=== PATIENT | male | born 1985 | race Caucasian/White ===

== ENCOUNTER 2023-12-29 17:36 | Observation (INO) | payer BC ==
[2023-12-29 18:24] LABS: Specific Gravity 1.024 (1.005-1.030); Urine Bilirubin NEGATIVE (Negative); Urine Blood Negative (Negative); Urine Clarity Clear (Clear); Urine Color Light-Yellow (Yellow); Urine Glucose NEGATIVE (Negative); Urine Ketones NEGATIVE (Negative); Urine Microscopic Reflex YN NO UMIC; Urine Nitrite NEGATIVE (Negative); Urine Protein NEGATIVE (Negative); Urine Urobilinogen Normal (Normal); Urine pH 6.5 (5.0-7.0)
[2023-12-29 18:26] LABS: Absolute Eosinophils 0.1 K/uL (0-0.5); Absolute Lymphocytes (CBC) 2.4 K/uL (0.7-4.9); Absolute Monocytes 0.7 K/uL (0.1-1.3); Absolute Neutrophil 6.7 K/uL (1.8-8.0); Basophils % 0.5 % (0-1.3); Eosinophils % 1.4 % (0-4.4); Hematocrit 42.1 % (39.6-49.0); Hemoglobin 14.8 g/dL (13.6-17.9); Lymphocytes % 24.3 % (15.3-44.8); MCH 30.8 pg (27.0-35.0); MCHC 35.2 g/dL (32.0-36.0); MCV 87.3 fL (80-100); MPV 9.8 fL (7.6-11.3); Neutrophils % 66.8 % (41.7-73.7); Nucleated Red Blood Cells % 0.3 % (0-0); Platelets 164 thou/uL (152-406); RBC Red Blood Cell Count 4.83 M/uL (4.33-5.43); Red Cell Distribution Width 12.9 % (12.1-15.2)
[2023-12-29 18:48] LABS: Albumin 3.6 g/dL (3.4-5.0); Albumin/Globulin Ratio 1.1 (1.1-1.8); Anion Gap 7.9 mEq/L (5.0-15.0); Globulin 3.3 g/dL (2.3-3.5); Protein, Total 6.9 g/dL (6.4-8.2)
[2023-12-29 18:49] LABS: Potassium 3.9 mEq/L (3.5-5.1)
--- NOTE | 2023-12-29 19:21 | RAD REPORT ---
EXAMINATION: CT ABDOMEN AND PELVIS WITH CONTRAST CLINICAL INDICATION: ABD PAIN TECHNIQUE: CT abdomen and pelvis was performed, after the administration of IV contrast, as per [facility] protocol. Axial, sagittal and coronal reconstructions were obtained. One or more of the following dose reduction techniques were used: Automated exposure control, adjustment of the mA and k V according to patient size, and iterative reconstruction. Unless otherwise specified, incidental findings do not require dedicated imaging follow-up. COMPARISON: None FINDINGS: LOWER CHEST: The visualized lung bases are clear. LIVER: Normal in size and contour. No focal lesion. Grossly unremarkable gallbladder. SPLEEN: Normal size. No focal lesion. PANCREAS: No mass, ductal dilation, or petrona-pancreatic fluid. ADRENALS: Normal; no mass. KIDNEYS: Normal size and contour. No hydronephrosis. GASTROINTESTINAL TRACT: No evidence of free air, significant intra-abdominal free fluid, bowel obstru ction or abscess. APPENDIX: Appendix is dilated and moderately inflamed measuring up to 2 cm compatible with acute appe ndicitis. LYMPH NODES: No lymphadenopathy. MUSCULOSKELETAL: No acute or suspicious osseous abnormality. ADDITIONAL FINDINGS: None. IMPRESSION: Acute appendicitis.
--- NOTE | 2023-12-29 19:41 | EDPHYS ---
Physician Documentation [facility] Name: Rc Fairbanks Jr Age: 38 yrs Sex: Male : 1985 Arrival Date: 12/29/2023 Time: 17:36 Bed 20 Private MD: ED Physician Patrice Larry HPI: 12/28 17:43 This 38 yrs old Male presents to ER via Ambulatory with complaints of Abdominal Pain. sb4 17:43 The patient presents with abdominal pain right lower quadrant. Onset: The sb4 symptoms/episode began/occurred at an unknown time, and became worse today. The symptoms do not radiate. Associated signs and symptoms: none. Modifying factors: The symptoms are alleviated by remaining still, the symptoms are aggravated by coughing, breathing deeply, movement, pressure. Severity of pain: in the emergency department the pain is a 4 / 10. The patient has not experienced similar symptoms in the past. The patient has not recently seen a physician. Historical: - Allergies: 17:43 No Known Allergies; aa5 - Home Meds: 17:43 Omeprazole Oral [Active]; aa5 - PMHx: 17:43 None; aa5 - PSHx: 17:43 None; aa5 - Immunization history:: Adult Immunizations unknown. - Infectious Disease History:: Denies. - Social history:: Smoking status: Patient denies any tobacco usage or history of. ROS: 17:43 Constitutional: Negative for fever, chills, and weight loss, sb4 17:43 Abdomen/GI: Positive for abdominal pain, 17:43 All other systems are negative, Exam: 17:43 Constitutional: This is a well developed, well nourished patient who is awake, alert, sb4 and in no acute distress. Head/Face: Normocephalic, atraumatic. Eyes: Extra-ocular motions intact. Periorbital areas with no swelling, redness, or edema. ENT: Mucous membranes moist. Cardiovascular: Regular rate and rhythm with a normal S1 and S2. Respiratory: Lungs have equal breath sounds bilaterally, clear to auscultation and percussion. No rales, rhonchi or wheezes noted. No increased work of breathing, no retractions or nasal flaring. Skin: Warm, dry with normal turgor. Normal color with no rashes, no lesions, and no evidence of cellulitis. 17:43 Abdomen/GI: Inspection: abdomen appears normal, Bowel sounds: normal, Palpation: soft, mild abdominal tenderness, in the right lower quadrant, rebound tenderness, is not appreciated, voluntary guarding, is not appreciated, Vital Signs: 17:40 BP 169 / 96; Pulse 81; Resp 16 S; Temp 98(TE); Pulse Ox 100% on R/A; Weight 129.27 kg aa5 (R); Height 6 ft. 3 in. (R); Pain 4/10; 19:45 BP 141 / 87; Pulse 82; Resp 17; Temp 98(O); Pulse Ox 100% on R/A; Pain 4/10; rg5 17:40 Body Mass Index 35.62 (129.27 kg, 190.5 cm) aa5 17:40 Pain Scale: Adult aa5 19:45 Pain Scale: Adult rg5 MDM: 17:40 Patient medically screened. sb4 19:39 Data reviewed: vital signs, nurses notes, lab test result(s), radiologic studies, and sb4 as a result, I will admit patient. Consideration of Admission/Observation Patient was admitted/placed on observation. Management of patient was discussed with the following: Hospitalist: Dr. Goldstein. [facility]: Dr. Quach, will operate in the morning. Historians other than the Patient: Spouse/Significant Other: . Counseling: I had a detailed discussion with the patient and/or guardian regarding the historical points, exam findings, and any diagnostic results supporting the discharge/admit diagnosis, the presence of at least one elevated blood pressure reading (>120/80) during this emergency department visit, lab results, radiology results, the need for further work-up and treatment in the hospital. 12/28 17:43 Order name: CBC with Diff; Complete Time: 18:27 sb4 12/28 17:43 Order name: CMP; Complete Time: 18:49 sb4 12/28 17:43 Order name: Lipase; Complete Time: 18:49 sb4 12/28 17:43 Order name: Urinalysis w/ reflexes; Complete Time: 18:25 sb4 12/28 20:05 Order name: Urinalysis w/ reflexes EDMS 12/28 17:43 Order name: CT Abd/Pelvis - IV Contrast Only; Complete Time: 19:22 sb4 12/28 17:43 Order name: IV Saline Lock; Complete Time: 18:22 sb4 12/28 17:43 Order name: Labs collected and sent; Complete Time: 18:22 sb4 Administered Medications: 20:00 Drug: Piperacillin-Tazobactam IVPB 3.375 grams IVPB once over 60 mins; (mix in NS 100 rg5 mL) Route: IVPB; Infused Over: 60 mins; Site: right antecubital; 20:56 Follow up: IV Status: Completed infusion; IV Intake: 100ml rg5 Disposition Summary: 12/29/23 19:40 Hospitalization Ordered Notes: Hospitalization Status: Inpatient Admission sb4 Provider: Prince clemencia Goldstein4 Location: Telemetry/MedSurg (Inpatient) sb4 Condition: Stable sb4 Problem: new sb4 Symptoms: are unchanged sb4 Bed/Room Type: Standard sb4 Room Assignment: 208(12/29/23 20:07) vk Diagnosis - Acute appendicitis with localized peritonitis sb4 Forms: - Medication Reconciliation Form sb4 - SBAR form sb4 - Leadership Thank You Letter sb4 Addendum: 12/31/2023 09:23 I was immediately available for consultation during this patient's visit. I did not e c2 personally see the patient or discuss the patient with the EZEQUIEL. . Signatures: Dispatcher [employer] Prudence Gutierrez RN RN aa5 Nai Gr, PA-C PA-C sb4 Patrice Larry MD MD ec2 Sierra Hernandez Rommel, RN RN rg5 Corrections: (The following items were deleted from the chart) 12/28 17:44 17:44 CBC+H.LAB.BRZ ordered. EDMS EDMS 17:44 17:44 COMPREHENSIVE METABOLIC PANEL+C.LAB.BRZ ordered. EDMS EDMS 17:44 17:44 LIPASE+C.LAB.BRZ ordered. EDMS EDMS 17:44 17:44 Urinalysis+U.LAB.BRZ ordered. EDMS EDMS 20:07 19:40 sb4 vk
--- NOTE | 2023-12-29 19:41 | ER ---
Nurse's Notes [facility] Name: Rc Fairbanks Jr Age: 38 yrs Sex: Male : 1985 Arrival Date: 12/29/2023 Time: 17:36 Bed 20 Private MD: Diagnosis: Acute appendicitis with localized peritonitis Presentation: 12/28 17:40 Chief complaint: Patient states: RUQ and RLQ pain that began 2-3 days ago. Denies aa5 nausea/vomiting. Coronavirus screen: At this time, the client does not indicate any symptoms associated with coronavirus-19. Ebola Screen: Patient denies travel to an Ebola-affected area in the 21 days before illness onset. Initial Sepsis Screen: Does the patient meet any 2 criteria? No. Patient's initial sepsis screen is negative. Does the patient have a suspected source of infection? No. Patient's initial sepsis screen is negative. Risk Assessment: Do you want to hurt yourself or someone else? Patient reports no desire to harm self or others. Onset of symptoms was December 2023. 17:40 Method Of Arrival: Ambulatory aa5 17:40 Acuity: CAPRICE 3 aa5 Historical: - Allergies: 17:43 No Known Allergies; aa5 - Home Meds: 17:43 Omeprazole Oral [Active]; aa5 - PMHx: 17:43 None; aa5 - PSHx: 17:43 None; aa5 - Immunization history:: Adult Immunizations unknown. - Infectious Disease History:: Denies. - Social history:: Smoking status: Patient denies any tobacco usage or history of. Screenin:23 [facility] ED Fall Risk Assessment (Adult) History of falling in the last 3 months, ph including since admission No falls in past 3 months (0 pts) Confusion or Disorientation Yes (5 pts) Intoxicated or Sedated Yes (3 pts) Impaired Gait No (0 pts) Mobility Assist Device Used No (0 pt) Altered Elimination No (0 pt) Score/Fall Risk Level 0 - 2 = Low Risk Oriented to surroundings, Maintained a safe environment, Provided non-skid footwear. Abuse screen: Denies threats or abuse. Denies injuries from another. Nutritional screening: No deficits noted. Tuberculosis screening: No symptoms or risk factors identified. Assessment: 18:22 General: Appears in no apparent distress. comfortable, well groomed, Behavior is calm, ph cooperative, appropriate for age. Pain: Complains of pain in right upper quadrant and right lower quadrant. Neuro: Level of Consciousness is awake, alert, obeys commands, Oriented to person, place, time, situation. Cardiovascular: Capillary refill < 3 seconds in bilateral fingers Patient's skin is warm and dry. Respiratory: Airway is patent Respiratory effort is even, unlabored, Respiratory pattern is regular, symmetrical. GI: Abdomen is non-distended, Bowel sounds present X 4 quads. Abd is soft X 4 quads Reports lower abdominal pain, upper abdominal pain, Patient currently denies diarrhea, nausea, vomiting. Derm: Skin is intact, is healthy with good turgor, Skin is pink, warm \T\ dry. Musculoskeletal: Circulation, motion, and sensation intact. Range of motion: intact in all extremities. 19:05 General: Appears in no apparent distress. comfortable, Behavior is calm, cooperative, rg5 appropriate for age. 19:05 Pain: Complains of pain in abdomen Pain currently is 4 out of 10 on a pain scale. rg5 Quality of pain is described as aching. Neuro: Level of Consciousness is awake, alert, obeys commands, Oriented to person, place, time, situation. Cardiovascular: Capillary refill < 3 seconds Patient's skin is warm and dry. Respiratory: Airway is patent Respiratory effort is even, unlabored, Respiratory pattern is regular, symmetrical. GI: Abdomen is non-distended, Bowel sounds present X 4 quads. Abd is soft Reports lower abdominal pain, upper abdominal pain. Derm: Skin is intact, Skin is normal. Derm: Skin is intact, Skin is normal. Musculoskeletal: Circulation, motion, and sensation intact. Range of motion: intact in all extremities. 20:45 Reassessment: No changes from previously documented assessment. Patient and/or family rg5 updated on plan of care and expected duration. Pain level reassessed. Patient is alert, oriented x 3, equal unlabored respirations, skin warm/dry/pink. Vital Signs: 17:40 BP 169 / 96; Pulse 81; Resp 16 S; Temp 98(TE); Pulse Ox 100% on R/A; Weight 129.27 kg aa5 (R); Height 6 ft. 3 in. (R); Pain 4/10; 19:45 BP 141 / 87; Pulse 82; Resp 17; Temp 98(O); Pulse Ox 100% on R/A; Pain 4/10; rg5 17:40 Body Mass Index 35.62 (129.27 kg, 190.5 cm) aa5 17:40 Pain Scale: Adult aa5 19:45 Pain Scale: Adult rg5 ED Course: 17:36 Patient arrived in ED. ra3 17:37 Nai Gr [facility] sb4 17:37 Patrice Larry MD is Attending Physician. sb4 17:40 Triage completed. aa5 17:40 Arm band placed on. aa5 17:48 Rosie Navarro, HALEY is Primary Nurse. ph 18:22 CBC with Diff Sent. ph 18:22 CMP Sent. ph 18:22 Lipase Sent. ph 18:22 Urinalysis w/ reflexes Sent. ph 18:23 Patient has correct armband on for positive identification. Bed in low position. Call ph light in reach. Pulse ox on. NIBP on. Door closed. Noise minimized. Warm blanket given. 18:27 No provider procedures requiring assistance completed. Initial lab(s) drawn, by ks, ph sent to lab. Urine collected: clean catch specimen. Inserted saline lock: 20 gauge in right antecubital area, using aseptic technique. Blood collected. Flushed with 10 mL NS. 19:13 CT Abd/Pelvis - IV Contrast Only In Process Unspecified. EDMS 19:40 Prince Goldstein MD is Hospitalizing Provider. sb4 20:28 Urinalysis w/ reflexes Sent. rg5 21:01 Patient admitted, IV remains in place. rg5 21:02 Provided Education on: need for admit. rg5 Administered Medications: 20:00 Drug: Piperacillin-Tazobactam IVPB 3.375 grams IVPB once over 60 mins; (mix in NS 100 rg5 mL) Route: IVPB; Infused Over: 60 mins; Site: right antecubital; 20:56 Follow up: IV Status: Completed infusion; IV Intake: 100ml rg5 Medication: 18:23 VIS not applicable for this client. ph Intake: 20:56 IV: 100ml; Total: 100ml. rg5 Outcome: 19:40 Decision to Hospitalize by Provider. sb4 21:14 Patient left the ED. rg5 Signatures: Dispatcher [employer] EDMS Prudence Loyola RN RN aa5 Rosie Navarro RN RN ph Simón, DEYA Trimble PALinden khanna4 Alexa Ramos ra3 Milton Tena, RN RN rg5 Corrections: (The following items were deleted from the chart) 17:42 17:40 BP 169 / 96; Pulse 81bpm; Resp 16bpm; Spontaneous; Pulse Ox 100% RA; Temp 98F aa5 Temporal; aa5 17:43 17:40 BP 169 / 96; Pulse 81bpm; Resp 16bpm; Spontaneous; Pulse Ox 100% RA; Temp 98F aa5 Temporal; Pain 10, Adult; aa5
[2023-12-29] MEDS ORDERED: ONDANSETRON 4 MG/2 ML VIAL IV PRN (20:01)
[2023-12-29] MEDS ORDERED: SODIUM CHLORIDE 0.9% 10ML INJ IV PRN (20:04)
[2023-12-29] MEDS: PIPER TAZO 3.375 GM in NA CHLORIDE 0.9% 100 ML IV SCH (20:04)
--- NOTE | 2023-12-29 20:08 | P.HP ---
Certification for Inpatient Patient admitted to: Observation With expected LOS: <2 Midnights Practitioner: I am a practitioner with admitting privileges, knowledge of patient current condition, hospital course, and medical plan of care. Services: Services provided to patient in accordance with Admission requirements found in Title 42 Section 412.3 of the Code of Federal Regulations Patient History Date of Service: 12/29/23 Reason for admission: Acute appendicitis History of Present Illness: Patient is a 38-year-old male with a past medical history of GERD. He presented to the ER accompanied by his partner complaining of acutely worsening right lower quadrant pain. The onset of symptoms was on the day of admission. Initially thought this was a hernia as he is engaged recently in strenuous exercise including weightlifting. CT abdomen and pelvis in the ER showed acute appendicitis. Patient has a normal WBC, he is not septic. During my evaluation in the ER, patient was alert and awake. Physical Examination - Physical Exam General: In no apparent distress, Obese HEENT: Atraumatic, Normocephalic Respiratory: Clear to auscultation bilaterally, Normal air movement Cardiovascular: No edema, Normal pulses, Regular rate/rhythm, Normal S1 S2 Neurological: Normal speech - Studies Laboratory Data (last 24 hrs) 12/29/23 12/29/23 18:10 18:10 WBC 10.00 Hgb 14.8 Hct 42.1 Plt Count 164 Sodium 141 Potassium 3.9 BUN 16 Creatinine 1.22 Glucose 95 Total Bilirubin 1.0 AST 17 ALT 33 Alkaline Phosphatase 59 Lipase 54 Assessment and Plan - Problems (Diagnosis) (1) Acute appendicitis Current Visit: Yes Status: Acute (2) GERD (gastroesophageal reflux disease) Current Visit: Yes Status: Acute (3) Obesity Current Visit: Yes Status: Acute - Plan Assessment This is a generally healthy 38-year-old male who is presenting to the ER with acutely worsening right lower quadrant abdominal pain. He was found to have appendicitis on CAT scan. Patient's review of system is negative for nausea, vomiting or diarrhea. He also denies fever. He does not meet criteria for sepsis. Acute appendicitis GERD Obesity Plan: Admit under observation Will start patient on IV fluid and empiric antibiotic coverage perioperatively Pain control, IV PPI and antiemetics Consult placed to general surgery for appendectomy Patient is full code He can be discharged tomorrow if cleared by general surgery - Advance Directives Does patient have a Living Will: No Does patient have a Durable POA for Healthcare: No
[2023-12-29] MEDS ORDERED: NA CHLORIDE 0.9% 100 ML ONE (20:14)
[2023-12-29] MEDS ORDERED: PIPERACIL/TAZO 3.375 GM VIAL IV ONE (20:14)
[2023-12-29 22:34] VITALS: BMI 35.6
[2023-12-29] MEDS: PANTOPRAZOLE 40 MG INJ IVP SCH (22:47)
[2023-12-29] MEDS: D5 0.45 NS 1,000 ML IV SCH (22:47)
[2023-12-29] MEDS: ACETAMINOPHEN 500 MG TAB PO PRN (22:48)
[2023-12-30] MEDS ORDERED: PANTOPRAZOLE 40MG TABLET PO SCH (06:30)
--- NOTE | 2023-12-30 08:46 | P.DS ---
Admission Date: 12/29/23 Discharge Date: 12/30/23 Disposition: ROUTINE DISCHARGE Discharge Condition: GOOD Reason for Admission: Acute appendicitis Consultations: Dr. Quach Procedures: Laparoscopic appendectomy Brief History of Present Illness: Patient is a 38-year-old male with a past medical history of GERD. He presented to the ER accompanied by his partner complaining of acutely worsening right lower quadrant pain. The onset of symptoms was on the day of admission. Initially thought this was a hernia as he is engaged recently in strenuous exercise including weightlifting. CT abdomen and pelvis in the ER showed acute appendicitis. Patient has a normal WBC, he is not septic. During my evaluation in the ER, patient was alert and awake. Hospital Course: Mr. Fairbanks underwent a laparoscopic appendectomy today. He will be discharged with Augmentin 500 mg p.o. twice daily x 5 days and [place] 5/325 p.o. every 4-6 hours as needed pain #15. He should avoid lifting anything more than 10 pounds for 1 week. He should follow-up with Dr. Quach in 2 weeks. Vital Signs/Physical Exam: Temp Pulse Resp BP Pulse Ox 98.3 F 60 18 111/59 L 95 12/30/23 04:00 12/30/23 04:00 12/30/23 04:00 12/30/23 04:00 12/30/23 04:00 General: Alert, In no apparent distress, Oriented x3 HEENT: Atraumatic, Normocephalic Neck: Supple Respiratory: Normal air movement Cardiovascular: Normal pulses, Regular rate/rhythm Capillary refill: <2 Seconds Gastrointestinal: Hypoactive, Other ("Sore", positive p.o., positive voiding) Musculoskeletal: No clubbing, No swelling Integumentary: No rashes Neurological: Normal speech, Normal tone, Normal affect Lymphatics: No axilla or inguinal lymphadenopathy External genitalia: Deferred Rectal: Deferred Laboratory Data at Discharge: WBC 10.00 thou/uL (4.3-10.9) 12/29/23 18:10 Hgb 14.8 g/dL (13.6-17.9) 12/29/23 18:10 Hct 42.1 % (39.6-49.0) 12/29/23 18:10 Plt Count 164 thou/uL (152-406) 12/29/23 18:10 Sodium 141 mEq/L (136-145) 12/29/23 18:10 Potassium 3.9 mEq/L (3.5-5.1) 12/29/23 18:10 BUN 16 mg/dL (7-18) 12/29/23 18:10 Creatinine 1.22 mg/dL (0.70-1.30) 12/29/23 18:10 Glucose 95 mg/dL (74-106) 12/29/23 18:10 Total Bilirubin 1.0 mg/dL (0.2-1.0) 12/29/23 18:10 AST 17 U/L (15-37) 12/29/23 18:10 ALT 33 U/L (16-61) 12/29/23 18:10 Alkaline Phosphatase 59 U/L (45-117) 12/29/23 18:10 Lipase 54 U/L (13-75) 12/29/23 18:10 Home Medications: Omeprazole [Prilosec] 40 mg PO DAILY 12/29/23 Amox/Clavulanate [Augmentin 500-125 mg Tab] 500 mg PO BID #10 tab 12/30/23 Hydrocodone 5/APAP 325 [[place] 5/325*] 1 tab PO Q6H PRN #15 tab 12/30/23 New Medications: Amox/Clavulanate [Augmentin 500-125 mg Tab] 500 mg PO BID #10 tab Hydrocodone 5/APAP 325 [[place] 5/325*] 1 tab PO Q6H PRN #15 tab PRN Reason: Pain Scale 5-7 (Moderate) Physician Discharge Instructions: Mr. Faibranks underwent a laparoscopic appendectomy today. He will be discharged with Augmentin 500 mg p.o. twice daily x 5 days and [place] 5/325 p.o. every 4-6 hours as needed pain #15. He should avoid lifting anything more than 10 pounds for 1 week. He should follow-up with Dr. Quach in 2 weeks. Diet: Regular Activity: Ad art Followup: Ernestine Zepeda NP [Primary Care Provider] - Denilson Quach MD [ACTIVE - CAN ADMIT] -
[2023-12-30] MEDS: LIDOCAINE HCL/EPINEPHRINE 20 ML MDV ONE (08:50)
[2023-12-30] MEDS ORDERED: propofoL 200 MG/20 ML VIAL IV ONE (09:05)
[2023-12-30] MEDS ORDERED: FENTANYL CITR 100 MCG/2 ML ONE (09:05)
[2023-12-30] MEDS ORDERED: ROCURONIUM 50 MG/5 ML VIAL IV ONE ×2 (09:05→10:02)
[2023-12-30] MEDS ORDERED: MIDAZOLAM HCL 2 MG/2 ML INJ ONE (09:05)
[2023-12-30] MEDS ORDERED: dexAMETHasone 4 MG/ML VIAL ONE (09:06)
[2023-12-30] MEDS ORDERED: KETOROLAC 30 MG/ML INJ ONE (09:06)
[2023-12-30] MEDS ORDERED: ONDANSETRON 4 MG/2 ML VIAL ONE (09:06)
[2023-12-30] MEDS ORDERED: LIDOCAINE 1% MPF 5 ML VIAL ONE (09:06)
[2023-12-30] MEDS: SUGAMMADEX SODIUM 200 MG/2 ML VIAL IV ONE (09:32)
[2023-12-30] MEDS: Ringers Lactate 1,000 ML IV ONE (10:35)
--- NOTE | 2023-12-30 10:44 | P.OP ---
Preoperative diagnosis: Acute Appendicitis Postoperative diagnosis: Acute Appendicitis Primary procedure: Laparoscopic Appendectomy Anesthesia: GETA + Local Estimated blood loss: <10cc Specimen: Appendix Findings: Thick Fibrous Inflammed Non-perforated appendicitis, retrocecal Complications: None Transferred to: Recovery Room Condition: Good
[2023-12-30] MEDS ORDERED: HYDROCODONE/APAP 5/325 MG TAB PO PRN (11:02)
[2023-12-30 11:10] VITALS: O2SAT 95
[2023-12-30 11:32] VITALS: TEMP 97.8
--- NOTE | 2023-12-30 11:51 | OP ---
Date of Procedure: 12/30/2023 Surgeon: Rachel Quach MD, Preoperative Diagnosis: Acute appendicitis. Postoperative Diagnosis: Acute appendicitis. Procedure Performed: Laparoscopic appendectomy. Anesthesia: General endotracheal plus local. Estimated Blood Loss: 10 cc. Specimen: Vermiform appendix. Findings: Thick fibrous, inflamed, nonperforated appendicitis in the retrocecal position in close ap position of both the abdominal wall as well as the cecum. In addition, there were small bowel adhesi ons to the right abdominal wall from the terminal ileum, which were draped over the appendix. The pa tient was transferred to recovery room in good condition. No complications. Procedure In Detail: After informed consent was obtained, patient was brought to the operating room, prepped and draped in the usual sterile fashion. After adequate anesthesia was achieved, I anesthet ized an area of the infraumbilical position down to subcutaneous tissues. A 5 mm 0 degree optical tr ocar was introduced in the abdomen without incident or complication. Insufflation was obtained to 15 mmHg at this time. There was no injury to vital structures upon entry into the abdomen. Additional trocars were placed in the supraumbilical position and 1 in the right lower quadrant. Both these 5 mm trocars were placed under direct visualization without incident or complication. The umbilical t rocar was then upsized to a 12 mm under direct visualization without incident or complication. The p atient was positioned head down, right side up position. Ratcheted graspers were used to grasp the p atient's cecum and the confluence following the tenia to the appendix, which was found to be quite th ickened and inflamed without any evidence of perforation. There were significant inflammatory change s in the right lower quadrant as well as what appeared to be significant adhesions in the right lower quadrant from the small bowel to the abdominal wall over the appendix, which required mob ilization using the LigaSure device by mobilizing the adhesions off the lateral pelvic sidewall to al low for mobilization of the small bowel to be draped over the top. The ileal veil was then grasped, elevated, and a dissection continued down on the lateral aspect of the appendix as it was in a thick retrocecal position and a combination of LigaSure and blunt dissection was used to dissect the perito gabriel attachments off the appendix, which had a thick inflammatory appearance without evidence of perf oration. I then created a dissection plane between the colon and the appendix on the medial aspect o f the appendix, on the lateral aspect of the colon. At this point, a mesenteric window was created u sing a LigaSure device with a [place] tip. I fired a AIDE 45 purple load across the base of the appe ndix with good approximation of tissues. I then took the mesoappendix down using the LigaSure device without evidence of complication and ultimately removed the appendix, placed in EndoCatch bag and re moved through umbilical trocar. The area was copiously irrigated and suctioned out until completely dry. Multiple positioning was performed to ensure all effluent was suctioned out. The staple line a ppeared to be good without any evidence of leakage. There was no hemostatic required at the end the procedure. The area was copiously irrigated once again, suctioned out until completely dry. I then closed the 12 mm trocar site using a Adam-Aurora suture passer with 0 Vicryl in interrupted fashi on with good approximation of tissues. The abdomen was desufflated under direct visualization withou t incident or complication. All trocars were removed. All skin incisions were then copiously irriga rachel and closed with a 4-0 Monocryl in a running fashion with Dermabond placed over top. The patient tolerated the procedure without incident or complication, transferred to PACU in good condition. All counts were correct at the end of the case. AUGUST/EVONNE Voice ID: [id number] Report ID: [id number]
[2023-12-30 12:25] VITALS: BP 134/81
--- NOTE | 2023-12-30 13:15 | CON ---
Date of Consultation: 12/30/2023 Brief History Of Present Illness: The patient is a 38-year-old white man who presents with a history of GERD, who complains of worsening periumbilical and then right lower quadrant abdominal pain which occurred on the day of admission. He thought it was a hernia as he had engaged in strenuous activit y, but as it continued to get progressively worse, he came to the emergency room with the above-state d complaints when the pain got progressively worse and localized to the right lower quadrant. Past Medical History: GERD. Past Surgical History: Negative. Allergies: NO KNOWN DRUG ALLERGIES. Medications: None. Social History: He denies smoking, alcohol, or recreational drug use. Review of Systems: Ten-point review of systems other than HPI, denies. Physical Examination: General: At the time of my examination, he is awake, alert, and oriented. Psychiatric: Appropriate. Conversive. HEENT: Normocephalic. Sclerae anicteric. Mucous membranes are moist. Oropharynx clear. Neck: Supple without JVD. Chest: Normal expansion and excursion. Cardiovascular: Regular rate and rhythm. Pulmonary: Clear to auscultation bilaterally. Abdomen: Soft with positive right lower quadrant tenderness to palpation. Positive focal peritoniti s at McBurney's point. Positive voluntary guarding. Extremities: No clubbing, cyanosis, or edema. Skin: Warm and dry. Laboratory Exam: Revealed a white blood cell count of 10.0, hemoglobin 14.8, hematocrit of 41, plate let count was 164. Sodium 141, potassium 3.9, chloride 109, carbon dioxide 28, BUN 16, creatinine 1. 22, glucose is 95, total bilirubin 1.0, AST 17, ALT 33, alkaline phosphatase is 59, lipase is 54. UA was negative. He had imaging performed, which included a CT of the abdomen and pelvis, officially r ead as appendix is dilated, moderately inflamed measuring up to 2 cm compatible with acute appendicit is. Assessment And Plan: This is a 38-year-old man who presents with signs and symptoms of acute nonperf orated appendicitis. 1.IV fluid hydration. 2.Antibiotic coverage. 3.I have explained the risks, benefits, and alternatives of laparoscopic possible open appendectomy including, but not limited to, bleeding; infection; damage to surrounding tissues; injury to intestin es; injury to the heart, great blood vessels, spleen, pancreas, liver, blood clots, heart attack, str okes. Postoperative complications include, but not limited to, hernias, infections, abscess, need fo r further operation and procedures and other unforeseen complications in the perioperative period. P atient displayed understanding of the above stated plan and agrees to proceed as indicated. AUGUST/EVONNE Voice ID: [id number] Report ID: [id number]
== END 2023-12-30 16:04 | disposition home or self-care (01) ==
LOC: ER 17:36 → ERHOLD 20:01 → 2ND 20:19
PROVIDERS: ADMIT Internal Medicine; ATTEND Internal Medicine Sleep Medicine
PROC: 0DTJ4ZZ Resection of Appendix, Percutaneous Endoscopic Approach (ICD-10-PCS; principal; 2023-12-30 09:30)
DX: K35.80 Unspecified acute appendicitis (principal); K21.9 Gastro-esophageal reflux disease without esophagitis; E66.9 Obesity, unspecified; Z68.35 Body mass index [BMI] 35.0-35.9, adult
CPT/HCPCS: 85025; 36415; 81003; 83690; 80053; 74177; 94010; 44950; Q9967; J2704; J1100; J2001; J2543 ×3; J2470 ×2; J2250; J3010; J2405; J7799 ×2; J7120; 88304; G0378